=== PATIENT | female | born 1965 | race Two or more races ===

== ENCOUNTER → 2021-01-12 | Outpatient (CLI) | payer OTHER ==
--- NOTE | 2021-01-12 09:01 | RAD ---
US PELVIS COMPLETE History: Right ovarian cyst. Comparison: CT lumbar spine 09/09/2020 Technique: Sonographic examination of the pelvis was performed with transabdominal technique. Findings: Uterus- Size: 8.7 x 3.0 cm x 3.0 cm. Uterine parenchyma: Homogeneous without fibroids. Cervix: Unremarkable. Endometrium- Endometrial Stripe: No abnormal fluid collections in the endometrial cavity, no obvious mass, and no abnormal blood flow within the endometrium by Doppler. Thickness: 8 mm. Adnexa- Right Ovary: Contains a cyst measuring 5.5 x 5.3 x 3.8 cm. Size: 6.8 x 6.2 x 4.2 cm. Doppler: Normal. Left Ovary: Identified and appears normal. Size: 2.0 x 2.8 x 1.9 cm. Doppler: Normal. Mass: No abnormal adnexal masses. Fluid: No abnormal free fluid in the pelvis. Additional findings: None. Impression: 1. Simple appearing right ovarian cyst measuring up to 5.5 cm. In a postmenopausal female, follow-up is recommended in 6-12 months for growth rate assessment. Electronically signed by: Guero Mccain MD (01/12/2021 8:58 AM) [facility]
== END ==
LOC: US 09:39
PROVIDERS: ATTEND Family Medicine
DX: N83.201 Unspecified ovarian cyst, right side (principal)
CPT/HCPCS: 76856